=== PATIENT | female | born 1955 | race Caucasian/White ===

== ENCOUNTER → 2017-06-21 | Outpatient (CLI) | payer OTHER ==
[~2017-06-21] MED LIST: IOPAMIDOL (ISOVUE-300) 100 ML BTL ONE
== END ==
LOC: CIMAGING 14:19
PROVIDERS: ATTEND Family Medicine
DX: R60.9 Edema, unspecified (principal); K11.8 Other diseases of salivary glands
CPT/HCPCS: 70491-PO; Q9967

== ENCOUNTER → 2018-07-30 | Outpatient (CLI) | payer OTHER | LOC: CIMAGING 10:47 | PROVIDERS: ATTEND Family Medicine | DX: Z12.31 Encounter for screening mammogram for malignant neoplasm of breast (principal) ==

== ENCOUNTER → 2018-08-06 | Outpatient (CLI) | payer OTHER | LOC: CIMAGING 13:13 | PROVIDERS: ATTEND Family Medicine | DX: R92.8 Other abnormal and inconclusive findings on diagnostic imaging of breast (principal) | CPT/HCPCS: 76641-PO ==